=== PATIENT | female | born 1960 | race Caucasian/White ===

== ENCOUNTER 2017-07-07 13:19 | Emergency (ER) | payer SELFPAY ==
[2017-07-07] MEDS ORDERED: Lactated Ringers 1,000 ML IV ONE (13:47)
[2017-07-07] MEDS ORDERED: Sodium Chloride 0.9% 10 ML Syringe FLUSH PRN (13:47)
--- NOTE | 2017-07-07 14:07 | EDM.PDOC ---
ED HPI GENERAL MEDICAL PROBLEM - General Chief Complaint: Syncope Stated Complaint: CUT THUMB AT WORK Time Seen by Provider: 07/07/17 14:01 Source of Information: Reports: Patient, Family, Provider, RN Notes Reviewed History Limitations: Reports: No Limitations - History of Present Illness INITIAL COMMENTS - FREE TEXT/NARRATIVE: 56-year-old female presents to the emergency department for syncopal event, she has no past medical history was in the clinic for laceration repair to her thumb followed by a boxing promoter. I did well during the procedure provided lidocaine for local anesthetic however after the procedure became very lightheaded felt like passing out. Was observed in the clinic for several minutes unfortunately still felt weak and lightheaded and nauseated. On initial observation in the emergency department again near syncope diaphoretic nauseated with orthostatic changes on blood pressure. She feels fine in a supine position however becomes very lightheaded when standing - Related Data Allergies Allergy/AdvReac Type Severity Reaction Status Date / Time No Known Allergies Allergy Verified 06/13/15 10:56 Home Meds: Home Meds NK [No Known Home Meds] 07/07/17 [History] Past Medical History SPE[facility]ER History: Reports: Musculoskeletal History: Reports: Arthritis Neurological History: Reports: Vertigo - Infectious Disease History Infectious Disease History: Reports: Chicken Pox - Past Surgical History GI Surgical History: Reports: Hernia Repair/Other, Other (See Below) Female Surgical History: Reports: Section Musculoskeletal Surgical History: Reports: Arthroscopic Knee Social & Family History - Tobacco Use Smoking Status *Q: Never Smoker - Caffeine Use Caffeine Use: Reports: Coffee - Recreational Drug Use Recreational Drug Use: No ED ROS GENERAL - Review of Systems Review Of Systems: See Below Constitutional: Reports: No Symptoms HEENT: Reports: No Symptoms Respiratory: Reports: No Symptoms Cardiovascular: Reports: Syncope GI/Abdominal: Reports: No Symptoms : Reports: No Symptoms Musculoskeletal: Reports: No Symptoms Skin: Reports: No Symptoms Neurological: Reports: Dizziness - Physical Exam Exam: See Below Exam Limited By: No Limitations General Appearance: Alert, WD/WN, No Apparent Distress Head Exam: Atraumatic, Normocephalic Neck: Normal Inspection, Supple, Non-Tender, Full Range of Motion Respiratory/Chest: No Respiratory Distress, Lungs Clear, Normal Breath Sounds, No Accessory Muscle Use Cardiovascular: Regular Rate, Rhythm, No Murmur GI/Abdominal: Soft, Non-Tender Course - Vital Signs Last Recorded V/S: Last Vital Signs Temp 96.5 F 07/07/17 13:25 Pulse 65 07/07/17 15:45 Resp 14 07/07/17 13:25 BP 116/67 07/07/17 15:45 Pulse Ox 97 07/07/17 15:45 Orthostatic Blood Pressure [ 101/60 Standing] Orthostatic Blood Pressure [ 95/55 Sitting] Orthostatic Blood Pressure [ 124/64 Supine] - Orders/Labs/Meds Orders: Active Orders 24 hr Category Date Time Status Cardiac Monitoring [RC] .As Directed Care 07/07/17 14:04 Active EKG Documentation Completion [RC] ASDIRECTED Care 07/07/17 13:47 Active Peripheral IV Care [RC] . DIRECTED Care 07/07/17 13:47 Active Sodium Chloride 0.9% [Saline Flush] Med 07/07/17 13:47 Active 10 ml FLUSH ASDIRECTED PRN ED GI Medications Reflex [OM.PC] Stat Oth 07/07/17 14:04 Ordered Peripheral IV Insertion Adult [OM.PC] Urgent Oth 07/07/17 13:47 Ordered EKG 12 Lead [EK] Stat Ther 07/07/17 13:47 Ordered Medication Orders Sodium Chloride (Saline Flush) 10 ml FLUSH ASDIRECTED PRN PRN Reason: Keep Vein Open Labs: Laboratory Tests 07/07/17 07/07/17 Range/Units 14:00 14:00 WBC 5.8 (4.5-11.0) K/uL RBC 4.19 (3.30-5.50) M/uL Hgb 13.1 (12.0-15.0) g/dL Hct 38.7 (36.0-48.0) % MCV 92 (80-98) fL MCH 31 (27-31) pg MCHC 34 (32-36) % Plt Count 192 (150-400) K/uL Neut % (Auto) 69 H (36-66) % Lymph % (Auto) 21 L (24-44) % [place] % (Auto) 8 H (2-6) % Eos % (Auto) 2 (2-4) % Baso % (Auto) 1 (0-1) % Sodium 142 (140-148) mmol/L Potassium 3.7 (3.6-5.2) mmol/L Chloride 103 (100-108) mmol/L Carbon Dioxide 28 (21-32) mmol/L Anion Gap 11.1 (5.0-14.0) mmol/L BUN 15 (7-18) mg/dL Creatinine 0.8 (0.6-1.0) mg/dL Est Cr Clr Drug Dosing 71.50 mL/min Estimated GFR (MDRD) > 60 (>60) Glucose 105 (74-106) mg/dL Calcium 9.1 (8.5-10.1) mg/dL Total Bilirubin 0.4 (0.2-1.0) mg/dL AST 19 (15-37) U/L ALT 30 (12-78) U/L Alkaline Phosphatase 57 (46-116) U/L Creatine Kinase 79 (26-192) U/L CK-MB (CK-2) 0.7 (0-3.6) mg/mL Troponin I < 0.017 (0.000-0.056) ng/mL Total Protein 7.1 (6.4-8.2) g/dL Albumin 3.7 (3.4-5.0) g/dL Globulin 3.4 (2.3-3.5) g/dL Albumin/Globulin Ratio 1.1 L (1.2-2.2) Meds: Medications Generic Name Dose Route Start Last Admin Trade Name Freq PRN Reason Stop Dose Admin Sodium Chloride 10 ml 07/07/17 13:47 Saline Flush FLUSH ASDIRECTED PRN Keep Vein Open Discontinued Medications Generic Name Dose Route Start Last Admin Trade Name Freq PRN Reason Stop Dose Admin Lactated Ringer's 1,000 mls @ 999 mls/hr 07/07/17 13:47 Ringers, Lactated IV 07/07/17 14:47 BOLUS ONE Departure - Departure Time of Disposition: 16:01 Disposition: Home, Self-Care 01 Condition: Good Clinical Impression: Vasovagal syncope - Discharge Information Referrals: PCP,None [Primary Care Provider] - Forms: ED Department Discharge Additional Instructions: Please followup with your primary care provider in 3-5 days if not better, please call return to the emergency department with worsening of symptoms. - My Orders Last 24 Hours: My Active Orders 07/07/17 13:47 EKG Documentation Completion [RC] ASDIRECTED Peripheral IV Care [RC] . DIRECTED Sodium Chloride 0.9% [Saline Flush] 10 ml FLUSH ASDIRECTED PRN Peripheral IV Insertion Adult [OM.PC] Urgent EKG 12 Lead [EK] Stat 07/07/17 14:04 Cardiac Monitoring [RC] .As Directed ED GI Medications Reflex [OM.PC] Stat - Assessment/Plan Last 24 Hours: My Active Orders 07/07/17 13:47 EKG Documentation Completion [RC] ASDIRECTED Peripheral IV Care [RC] . DIRECTED Sodium Chloride 0.9% [Saline Flush] 10 ml FLUSH ASDIRECTED PRN Peripheral IV Insertion Adult [OM.PC] Urgent EKG 12 Lead [EK] Stat 07/07/17 14:04 Cardiac Monitoring [RC] .As Directed ED GI Medications Reflex [OM.PC] Stat Plan: Assessment Acuity = acute Site and laterality = vasovagal Etiology = unclear etiology Manifestations = none Location of injury = Home Lab values = CBC, CMP, troponin unremarkable CK-MB unremarkable EKG demonstrates sinus rhythm Plan She tolerated male was initially orthostatic on arrival but after resting blood pressure has stabilized she feels significantly better plan is to discharge to home follow-up primary care as needed This note was dictated using [employer] voice recognition software please call with any questions on syntax or grammar.
[2017-07-07 15:46] VITALS: BP 116/67
== END 2017-07-07 16:09 | disposition home or self-care (01) ==
LOC: JP.ED 13:19
DX: R55 Syncope and collapse (principal)
CPT/HCPCS: 36415; 80053; 82550; 82553; 84484; 85025; 93005; 99283; 99284-25